=== PATIENT | female | born 2000 | race Caucasian/White ===

== ENCOUNTER → 2021-05-08 | Day surgery (SDC) | payer OTHER ==
[~2021-05-08] VITALS: Ht 162.6 cm; Wt 56.2 kg
[~2021-05-08] MED LIST: COLACE100 MG PO; FEOSOL325 M1 PO; IBUPROFEN 600600 M1 PO; NORCO5 PO; PNV 29-1 TABLE1 EACH PO; VITAMIN D375 MCG PO
== END | disposition home or self-care (01) ==
LOC: OR 09:55
PROVIDERS: ATTEND Obstetrics & Gynecology
DX: Z01.812 Encounter for preprocedural laboratory examination (principal); Z20.822 Contact with and (suspected) exposure to COVID-19; Z98.890 Other specified postprocedural states

== ENCOUNTER → 2021-05-10 | Day surgery (SDC) | payer OTHER ==
[~2021-05-10] VITALS: Ht 162.6 cm; Wt 56.2 kg
[2021-05-10 11:48] VITALS: BP 101/68
[2021-05-10 13:49] LABS: HEMATOCRIT 29.4 % (37.0-47.0); HEMOGLOBIN 10.1 gm/dL (12.0-15.0)
[2021-05-10 15:55] VITALS: BP 101/68
[2021-05-10 15:57] VITALS: BP 101/68
--- NOTE | 2021-05-14 22:00 | O ---
[facility] [place] [address] OPERATIVE REPORT Name: RASHEL JAVIER Room #: REG [facility].#: [id number] Admission: 05/10/21 Attend Phys: Rimma Pena DO Discharge: Date of : 00 Report #: [id number] THIS REPORT FOR: cc: Rimma Pena,Rimma Curiel,Rimma Cole DO ~ DATE OF SERVICE: 05/10/2021 DATE OF PROCEDURE: 05/10/2021 PREOPERATIVE DIAGNOSIS: Missed , suspected partial molar . POSTOPERATIVE DIAGNOSIS: Missed , suspected partial molar . PROCEDURE: Suction, dilatation and curettage. SURGEON: Rimma Pena DO ANESTHESIA: General. INTRAVENOUS FLUIDS: Undocumented at the time of writing the note. URINE OUTPUT: 100 mL ESTIMATED BLOOD LOSS: 1500 mL COMPLICATIONS: None. DESCRIPTION OF PROCEDURE: The patient was taken to the operating room, where general anesthesia was administered and found to be adequate. She was then prepped and draped in normal sterile fashion in dorsal lithotomy position. A weighted speculum was placed in the patient's vagina. The anterior lip of the cervix was identified and grasped with a single tooth tenaculum. The cervix was then gently dilated with graduated Hegar dilators. An #8 curved suction curette was then placed through the cervix, gently advanced into the uterus and suction curettage was performed. A large amount of blood as well as tissue was extracted. The suction curette was removed. Sharp curettage was performed circumferentially, followed by further suction curettage. This was done until no products of conception could be further removed. After the last pass, the suction curette was removed. The tenaculum was removed from the patient's cervix. Tenaculum site was noted to be hemostatic. The weighted speculum was then removed from the patient's vagina. The patient tolerated the procedure [address] [place] [address] [place] [address] OPERATIVE REPORT Name: CONCEPCIONRASHEL PEREZ Room #: REG [facility].#: [id number] Admission: 05/10/21 Attend Phys: Rimma Pena DO Discharge: Date of : 00 Report #: [id number] well. Sponge and instrument counts were reported as correct and the patient was taken to the recovery room in stable condition. <ELECTRONICALLY SIGNED> By: Rimma Pena DO 05/14/21 2200 1032 1047 Rimma Pena DO /nt
--- NOTE | 2021-05-22 10:07 | PATH ---
[facility] [address] [place] [address] PATHOLOGY RPT PROCEDURE Name: COURTNEY BHATIA Room #: REG [facility] M.R.#: [id number] Admission: 05/10/21 Date of : 00 Discharge: Report #: [id number] Path Case #: [id number] [facility] Accession Number: [id number] . 01 Material submitted: . product of conception - PRODUCTS OF CONCEPTION . 01 Clinical history: . SUCTION D AND C INCOMPLETE SPONTANEOUS . 02 Diagnosis: Endometrium and first trimester chorionic villi (products of conception): - Decidualized endometrium with necrosis and acute and chronic inflammation are identified in conjunction with edematous first trimester chorionic villi of variable size. LBQ 05/14/2021 1557 Local . 02 Comment: Villous appearance is strongly suggestive of partial molar . Blocks will be sent off to determine ploidy to further study this possibility. (SWK/db; 05/14/2021) . 02 Addendum: . Special studies report received from [facility], [facility], [address], [place], [address], on case [id number], labeled with their number [id number], dated 05/18/2021. . Flow Cytometry: DNA Analysis . Clinical History Evaluate for molar . . Indication for Study Evaluation for DNA content analysis . Specimen Tissue, POC . Findings/Interpretation Tissue, POC: THESE RESULTS SHOW A TRIPLOID DNA PLOIDY CONTENT, WHICH IS MOST CONSISTENT WITH PARTIAL MOLAR GESTATION (SEE COMMENT). . Comments An accurate S-phase fraction (SPF) value cannot be determined due to [facility] [address] [place] [address] PATHOLOGY RPT PROCEDURE Name: COURTNEY BHATIA Room #: REG [facility] M..#: [id number] Admission: 05/10/21 Date of : 00 Discharge: Report #: [id number] Path Case #: [id number] overlapping cell populations. . Recommend correlation with p57 IHC (as indicated), in addition to serial serum quantitative Beta-HCG levels. . This interpretation is contingent on the specimen and the clinical information received. This analysis is an adjunct to the evaluation of the referring physician and does not represent a final diagnosis. . . Results Population(s) by Ploidy Status % of all cells DNA Index % S-phase Triploid Population 78.52 1.52 See Comment . Reference Intervals Flow Cytometry DNA Index Ploidy Status <>1.0 and <1.40 and >1.60 and <1.90; >2.10 Aneuploid 1.0 Diploid 1.40 - 1.60 Triploid 1.90 - 2.10 Tetraploid PLOIDY expressed as DNA Index - the ratio of the Amount of DNA in the tumor stemline to the Amount of DNA in normal diploid cells . Reagent(s) Used Propidium Iodide . at [facility]. Jodie Langford D.O. Surgical Pathologist . Any image or images that accompany this report are outside sales representative images only and should not be used to render a diagnosis. . Disclaimer(s) This test was developed and its performance characteristics determined by [facility]. It has not been cleared or approved by the Food and Drug Administration. . Performing Labs [facility] is a business unit of [employer]., a wholly-owned subsidiary of [employer]. . This test was performed at [facility]. at [address] [place] [address], [id number] - Emergency Medical Technician: Maulik Josue MD. [address] [address] PATHOLOGY RPT PROCEDURE Name: COURTNEY BHATIA Room #: REG [facility].#: [id number] Admission: 05/10/21 Date of : 00 Discharge: Report #: [id number] Path Case #: [id number] . For inquiries, the physician may contact Lab: [phone] . A complete copy of the report is on file. . Professional services performed by [facility]. at [address], [place] [address]. Technical services performed by [employer] [employer] at [address], [place] [address]. . (SWK:ammiranda 05/21/2021) . AZJ/05/21/2021 Addendum Electronically Signed by Soham Blakely MD, Pathologist . 02 Electronically signed: . Soham Blakely MD, Pathologist NPI- [id number] . 01 Gross description: . The specimen is received in formalin, labeled "Courtney Bhatia, products of conception". Received within three vacuum-trap containers is a large amount of pink-saxena tissue admixed with spongiform tissue and blood coagulum measuring 17.9 x 11.5 x 2.7 cm in aggregate dimensions. or embryonic tissue is not grossly identified. Vesicular structures are present. The specimen is submitted representatively in cassettes A1 through A3, with the outside sales representative vesicular structures submitted in cassette A1. (CAA; 05/11/2021) QAC/QAC 05/11/2021 0917 Local . 02 Pathologist provided ICD-10: O03.4 . 02 CPT . 584928 Specimen Comment: A courtesy copy of this report has been sent to [phone] Specimen Comment: Report sent to Performed at: [facility] [address] [id number] MD Vijay Wright MD Phone: [phone] Performed at: 02 [facility] [id number] [id number] MD Soham Blakely MD Phone: [phone]
== END | disposition home or self-care (01) ==
LOC: OR 07:04
PROVIDERS: ATTEND Obstetrics & Gynecology
DX: O02.1 Missed abortion (principal); O73.1 Retained portions of placenta and membranes, without hemorrhage; Z20.822 Contact with and (suspected) exposure to COVID-19; Z98.890 Other specified postprocedural states; Z79.899 Other long term (current) drug therapy
CPT/HCPCS: 50010; 50101; 62110; 62900; 70005